=== PATIENT | female | born 1995 | race Caucasian/White ===

== ENCOUNTER 2016-06-22 10:00 | Observation (INO) | payer BC | END 2016-06-22 11:45 | disposition home or self-care (01) | LOC: SPU 10:00 | PROVIDERS: ADMIT Specialist; ATTEND Specialist | DX: O26.892 Other specified pregnancy related conditions, second trimester (principal); N89.8 Other specified noninflammatory disorders of vagina; Z3A.25 25 weeks gestation of pregnancy | CPT/HCPCS: 59025; 81002; G0378 ==

== ENCOUNTER 2020-03-19 19:54 | Emergency (ER) | payer BC, MEDICAID ==
[~2020-03-19] VITALS: Ht 162.6 cm; Wt 98.9 kg
[2020-03-19 20:07] VITALS: BP_SYST 148
--- NOTE | 2020-03-19 20:11 | NUR ---
Patient to ER tent for evaluation
--- NOTE | 2020-03-19 20:17 | NUR ---
ER Dr. HAMMONDS at bedside examining patient.
--- NOTE | 2020-03-19 20:20 | NUR ---
PT ALERT AND ORIENTED X4 C/O OF ANXIETY, PRESSURE IN HER EARS, AND HEART PALPITATIONS, SOB. PT O2 SAT 98% ON ROOM AIR. PT DENIES NAUSEA, VOMITING, DIARRHEA, FEVER, CHILLS. PT REPORTS HX OF ANXIETY.
[2020-03-19 20:44] VITALS: BP_SYST 128
--- NOTE | 2020-03-19 20:44 | NUR ---
Patient given written and verbal discharge instructions and verbalizes understanding. ER MD discussed with patient the results and treatment provided. Patient in stable condition. ID arm band removed. NO Rx given. Patient educated on pain management and to follow up with PMD. Pain Scale 0/10. Opportunity for questions provided and answered. Medication side effect fact sheet provided.
== END 2020-03-19 20:44 | disposition home or self-care (01) ==
LOC: SED 19:54
DX: F41.9 Anxiety disorder, unspecified (principal); R07.89 Other chest pain
CPT/HCPCS: 99281

== ENCOUNTER 2020-03-31 20:09 | Emergency (ER) | payer MEDICAID ==
[~2020-03-31] VITALS: Ht 162.6 cm; Wt 96.2 kg
[2020-03-31 20:16] VITALS: BP_SYST 134
[2020-03-31] MEDS ORDERED: MAG-AL HYDROX/SIMETH 30 ML UDC PO ONE (20:30)
[2020-03-31] MEDS ORDERED: LIDOCAINE VISCOUS 2%, 15 ML UDC MM ONE (20:30)
[2020-03-31 21:10] LABS: BASOPHILS % (AUTO) 0.4 % (0.0-2.0); EOSINOPHILS # (AUTO) 0.2 K/uL (0.0-0.4); EOSINOPHILS % (AUTO) 1.8 % (0.0-4.0); HEMATOCRIT 36.7 % (36-48); HEMOGLOBIN 12.7 g/dL (12.0-16.0); LYMPHOCYTES # (AUTO) 2.7 K/uL (1.0-5.5); LYMPHOCYTES % (AUTO) 29.7 % (20.5-51.5); MEAN CORPUSCULAR HEMOGLOBIN 30 pg (27-31); MEAN CORPUSCULAR HGB CONC 35 % (32-36); MEAN CORPUSCULAR VOLUME 88 fL (79.0-98.0); MONOCYTES # (AUTO) 0.4 K/uL (0.0-1.0); NEUTROPHILS # (AUTO) 5.9 K/uL (1.8-7.7); NEUTROPHILS % (AUTO) 64.1 % (40.0-70.0); PLATELET COUNT (AUTO) 264 K/uL (130-430); WHITE BLOOD COUNT (AUTO) 9.2 K/uL (4.8-10.8)
[2020-03-31 21:59] LABS: ANION GAP 8 (5-15); CALCIUM 9.3 mg/dL (8.4-11.0); CHLORIDE 102 mmol/L (98-107); CREATININE 0.58 mg/dL (0.55-1.30); GLUCOSE 90 mg/dL (70-99); POTASSIUM 3.6 mmol/L (3.5-5.1); SODIUM SERUM 138 mmol/L (136-145); UREA NITROGEN, BLOOD 13 mg/dL (8-21)
[2020-03-31 22:07] LABS: ALANINE AMINOTRANSFERASE 91 U/L (12-78); ALBUMIN 3.9 g/dL (3.4-4.8); ASPARTATE AMINOTRANSFERASE 48 U/L (10-37); LIPASE 93 U/L (73-393); TOTAL BILIRUBIN 0.3 mg/dL (0.0-1.0)
[2020-03-31 22:11] LABS: GFR AFRICAN AMERICAN 164 mL/min (>90)
[2020-03-31 22:15] VITALS: BP_SYST 134
== END 2020-03-31 22:15 | disposition left against medical advice (07) ==
LOC: SED 20:09
DX: R07.89 Other chest pain (principal)
CPT/HCPCS: 36415; 71045; 80053; 83690; 84484; 84703; 85025; 85379; 93005; 99285; J2001